=== PATIENT | male | born 1985 | race Caucasian/White ===

== ENCOUNTER → 2020-11-14 | Outpatient (CLI) | payer BC ==
--- NOTE | 2020-11-14 13:58 | CARD ---
MR#: [id number] Date of Study: 11/14/2020 Ordering Physician: JORGE HUGGINS, Referring Physician: JORGE HUGGINS, Tech: Neela Margy, [facility] APPROVED REPORT EXAM: Two-dimensional and M-mode echocardiogram with Doppler and color Doppler. Other Information Quality : GoodHR: 55bpm INDICATION Palpitations 2D DIMENSIONS RVDd3.6 (2.9-3.5cm)Left Atrium(2D)3.3 (1.6-4.0cm) IVSd0.8 (0.7-1.1cm)Aortic Root(2D)2.9 (2.0-3.7cm) LVDd5.3 (3.9-5.9cm)LVOT Diameter2.0 (1.8-2.4cm) PWd0.9 (0.7-1.1cm)LVDs3.3 (2.5-4.0cm) FS (%) 37.9 %SV92.0 ml LVEF(%)67.6 (>50%) Aortic Valve AoV Peak Tyler.118.6cm/sAoV VTI23.8cm AO Peak GR.5.6mmHgLVOT Peak Tyler.103.3cm/s LVOT VTI 20.25cmAO Mean GR.3mmHg DEEDEE (VMAX)2.06cj4NBL (VTI)2.75cm2 Mitral Valve MV E Negmjhli35.7cm/sMV DECEL [id number] MV A Vplpisjk45.4cm/sMV ZKU40ks E/A Ratio1.5MVA (PHT)3.47cm2 TDI E/Lateral E'4.0E/Medial E'6.8 Pulmonary Valve PV Peak Ypjlhsai48.8cm/sPV Peak Grad.4mmHg Tricuspid Valve TR P. Kyiomrvn001sl/sRAP [id number] TR Peak Gr.50ssGcRMFN86kcBh Pulmonary Vein S1 Dxnmqycc03.3cm/sD2 Abqvbfje77.0cm/s PVa [id number] LEFT VENTRICLE The left ventricle is normal size. There is normal left ventricular wall thickness. The left ventricu lar systolic function is normal. The Ejection Fraction is 55-60%. There is normal LV segmental wall m otion. The left ventricular diastolic function and filling is normal for age. RIGHT VENTRICLE The right ventricle is normal size. There is normal right ventricular wall thickness. The right ventr icular systolic function is normal. ATRIA The left atrium size is normal. The right atrium size is normal. The interatrial septum is intact wit h no evidence for an atrial septal defect or patent foramen ovale as noted on 2-D or Doppler imaging. AORTIC VALVE The aortic valve is normal in structure and function. Doppler and Color Flow revealed no significant aortic regurgitation. There is no significant aortic valvular stenosis. Calculated aortic valve area is 2.40 cm2 with maximum pressure gradient of 6 mmHg and mean pressure gradient of 3 mmHg. MITRAL VALVE The mitral valve is normal in structure and function. There is no evidence of mitral valve prolapse. There is no mitral valve stenosis. Doppler and Color-flow revealed trace mitral regurgitation. TRICUSPID VALVE The tricuspid valve is normal in structure and function. Doppler and Color Flow revealed trace tricus pid regurgitation with an estimated PAP of 28 mmHg. There is no tricuspid valve stenosis. PULMONIC VALVE The pulmonary valve is normal in structure and function. Doppler and Color Flow revealed trace pulmon ic valvular regurgitation. GREAT VESSELS The aortic root is normal in size. The ascending aorta is normal in size. The IVC is normal in size a nd collapses >50% with inspiration. PERICARDIAL EFFUSION There is no evidence of significant pericardial effusion. Critical Notification Critical Value: No <Conclusion> The left ventricular systolic function is normal. The Ejection Fraction is 55-60%. There is normal LV segmental wall motion. Trace mitral regurgitation. Trace tricuspid regurgitation with an estimated PAP of 28 mmHg. There is no evidence of significant pericardial effusion. Signed by : Dillon Valverde, Electronically Approved : 11/14/2020 13:57:46
== END ==
LOC: ECHO 09:53
PROVIDERS: ATTEND Internal Medicine Cardiovascular Disease
DX: R00.2 Palpitations (principal)
CPT/HCPCS: 93306